=== PATIENT | male | born 1980 | race Hispanic/Latino ===

== ENCOUNTER 2022-12-24 08:01 | Emergency (ER) | payer BC, SELFPAY ==
[2022-12-24] MEDS ORDERED: Proparacaine 0.5% Opth 15 ML BOT ONE (08:34)
[2022-12-24] MEDS ORDERED: Fluorescein Opthalmic Strip ONE (08:35)
== END 2022-12-24 09:02 | disposition home or self-care (01) ==
LOC: ERS 08:01
DX: H11.32 Conjunctival hemorrhage, left eye (principal); F17.290 Nicotine dependence, other tobacco product, uncomplicated
CPT/HCPCS: 99282